=== PATIENT | female | born 1990 | race Caucasian/White ===

== ENCOUNTER → 2016-09-09 | Outpatient (CLI) | payer OTHER ==
[~2016-09-09] MED LIST: PRENTAB26 PO
[2016-09-09 16:50] LABS: HEMATOCRIT 32.1 % (37-47)
[2016-09-09 17:24] LABS: GTGD 50 Grams
== END | disposition home or self-care (01) ==
LOC: C.LAB1850 14:54
PROVIDERS: ATTEND Obstetrics & Gynecology
DX: Z34.82 Encounter for supervision of other normal pregnancy, second trimester (principal)

== ENCOUNTER 2016-10-12 20:58 | Outpatient (CLI) | payer OTHER ==
[~2016-10-12] VITALS: Ht 162.6 cm; Wt 104.0 kg
[2016-10-12 21:53] VITALS: Ht 162.6 cm; Wt 104.0 kg
== END 2016-10-12 21:45 | disposition home or self-care (01) ==
LOC: C.OPB 20:58 → C.LD 21:00 → C.OPB 21:45
PROVIDERS: ATTEND Obstetrics & Gynecology
DX: O26.899 Other specified pregnancy related conditions, unspecified trimester (principal); R10.9 Unspecified abdominal pain; Z3A.00 Weeks of gestation of pregnancy not specified

== ENCOUNTER → 2016-10-21 | Outpatient (CLI) | payer OTHER | END | disposition home or self-care (01) | LOC: C.LABSPEC 13:20 | PROVIDERS: ATTEND Obstetrics & Gynecology | DX: Z34.83 Encounter for supervision of other normal pregnancy, third trimester (principal) ==

== ENCOUNTER 2016-11-11 17:49 | Inpatient (IN) | payer OTHER ==
[~2016-11-11] VITALS: Ht 162.6 cm; Wt 103.4 kg
[2016-11-11] MEDS ORDERED: LACTATED RINGER'S 1000ML 1,000 ML IV PRN (18:55)
[2016-11-11] MEDS ORDERED: PATIENT'S ALLERGY INFO NEEDS ENTERED SCH (19:00)
[2016-11-11] MEDS: LACTATED RINGER'S 1000ML 1,000 ML IV SCH ×2 (19:08→20:15)
[2016-11-11] MEDS ORDERED: PRENTAB26 PO (19:12)
[2016-11-11 19:14] VITALS: Ht 162.6 cm; Wt 103.4 kg
[2016-11-11] MEDS ORDERED: BUPIVACAINE 0.25% 30 ML VIAL ONE (19:17)
[2016-11-11] MEDS ORDERED: EpHEDrine SULFATE INJ 50 MG/ML AMP ONE (19:18)
[2016-11-11] MEDS ORDERED: FENTANYL CITRATE INJ 50 MCG/1 ML 2 ML VIAL ONE (19:18)
[2016-11-11] MEDS ORDERED: FENTANYL 2MCG/ML ROPIV 1.25MG/ML 100ML BAG EPI ONE (19:19)
[2016-11-11 19:24] LABS: HEMATOCRIT 35.7 % (37-47); MEAN CELL VOLUME 81.7 fL (80-100); MEAN CORPUSCULAR HEMOGLOBIN 27.7 pg (25-34); MEAN CORPUSCULAR HGB CONC 33.9 g/dl (32-36); MEAN PLATELET VOLUME 9.4 fL (7.4-10.4); PLATELET COUNT 297 K/uL (130-400); RED BLOOD COUNT 4.37 M/uL (4.2-5.4); WHITE BLOOD COUNT 14.73 K/uL (4.8-10.8)
[2016-11-11] MEDS ORDERED: LACTATED RINGER'S 1000ML 500 ML IV PRN (19:52)
[2016-11-11] MEDS ORDERED: NALBUPHINE HCL INJ 10 MG/ML AMP IV PRN (20:00)
[2016-11-11] MEDS ORDERED: DiphenhydrAMINE HCL 50 MG/ML VIAL IV PRN (20:00)
[2016-11-11] MEDS ORDERED: NALOXONE HCL INJ 0.4 MG/1 ML VIAL/CARP IV PRN (20:00)
[2016-11-11] MEDS ORDERED: EpHEDrine SULFATE INJ 50 MG/ML AMP IV PRN (20:00)
[2016-11-11] MEDS ORDERED: FENTANYL 2MCG/ML ROPIV 1.25MG/ML 100ML BAG EPI PRN (20:00)
[2016-11-11] MEDS ORDERED: ONDANSETRON INJ 2 MG/ML 2 ML VIAL IV PRN (20:00)
[2016-11-11] MEDS ORDERED: OXYTOCIN 30 UNITS/500ML NSS IV ONE (22:06)
[2016-11-11] MEDS ORDERED: OXYTOCIN 30 UNITS/500ML NSS IV PRN (22:30)
[2016-11-11] MEDS ORDERED: ACETAMINOPHEN/CODEINE 300/30MG TAB PO PRN (22:30)
[2016-11-11] MEDS ORDERED: SUPERCREAM 0.870 % 15GM JAR EXT PRN (22:30)
[2016-11-11] MEDS ORDERED: LANOLIN OINT EXT PRN ×2 (22:30)
[2016-11-11] MEDS ORDERED: HYDROCORTISONE ACETATE 25 MG SUPP PR PRN (22:30)
[2016-11-11] MEDS ORDERED: BENZOCAINE 20% AER SPR 82.5 GM CAN EXT PRN (22:30)
--- NOTE | 2016-11-11 23:04 | DELIVERY SUMMARY ---
DATE OF OPERATION: 11/11/2016 PREDELIVERY DIAGNOSES: 1. A 26-year-old G6, P3-1-1-4 at 39 weeks 2 days. 2. Spontaneous labor. 3. Late transfer of care. 4. History of delivery at 34 weeks. History of a fall with that delivery and went into labor. PROCEDURE: Spontaneous vaginal delivery. ESTIMATED BLOOD LOSS: 200 mL. FINDINGS: Viable female . Apgars 8 and 9. Weight pending. Please see nursing records. DESCRIPTION OF DELIVERY: The patient progressed to complete with epidural anesthesia. She then pushed once and baby spontaneously vaginally delivered from left occiput anterior position. Head delivered followed by shoulders and body, all in one motion. The baby was warmed and dried and a spontaneous cry was heard. The baby was placed on mother's abdomen. Delayed cord clamping was performed, after 1 minute the cord was clamped and cut. Cord blood was obtained. The placenta delivered spontaneously intact with a 3-vessel cord. The uterus and vagina were swept of all clots and debris. Pitocin was given. The uterus became firm. The cervix, vagina and perineum were inspected and no lacerations were noted. Excellent hemostasis was observed. The patient tolerated the delivery well and in stable and good condition. She and the baby will recover in the room. I attest to the content of the Intraoperative Record and any orders documented therein. Any exceptio ns are noted below.
[2016-11-12 01:30] VITALS: BP 121/70; PULSE 84; TEMP 36.9
[2016-11-12 03:25] VITALS: BP 112/70; PULSE 80; TEMP 36.9
[2016-11-12] MEDS: IBUPROFEN 600 MG TAB PO PRN ×5 (03:34→21:18)
--- NOTE | 2016-11-12 06:43 | Progress Note ---
Subjective Nov 12, 2016. Subjective conversation w/ patient, physical exam Ambulation: ambulating normally Voiding: no voiding problems Passing Gas: No Diet Tolerance: Regular Diet Lochia: Small Feeding Type: Breast Feeding Review of Systems Constitutional: No chills, No fever Respiratory: No cough, No shortness of breath Cardiac: No chest pain, No palpitations Objective Vital Signs Date Time Temp Pulse Resp B/P Pulse Ox O2 Delivery O2 Flow Rate FiO2 11/12/16 03:25 36.9 80 18 112/70 Room Air 11/12/16 01:30 Room Air 11/12/16 01:30 36.9 84 16 121/70 Room Air Physical Exam General Appearance: WELL-APPEARING, NO APPARENT DISTRESS Respiratory/Chest: lungs clear, no respiratory distress Cardiovascular: regular rate, rhythm, no murmur Fundus: Firm, Non-Tender, Relation to Umbilicus (1 cm below umbilicus) Extremities: non-tender, no calf tenderness Laboratory Results Last 24 Hours Test 11/11/16 19:15 11/12/16 04:44 White Blood Count 14.73 K/uL Red Blood Count 4.37 M/uL Hemoglobin 12.1 g/dL Hematocrit 35.7 % Mean Corpuscular Volume 81.7 fL Mean Corpuscular Hemoglobin 27.7 pg Mean Corpuscular Hemoglobin Concent 33.9 g/dl RDW Standard Deviation 39.4 fL RDW Coefficient of Variation 13.1 % Platelet Count 297 K/uL Mean Platelet Volume 9.4 fL Assessment and Plan Post- Day#: 1 Continue Routine Care: s/p Day 1 - vitals reviewed and wnl - Hgb reviewed 12.1 - Blood: O+, GBS-, Rubella immune - Encourage ambulation, encourage , monitor lochia - Patient doing well clinically - CONTINUE ROUTINE POST- CARE Resident Physician Supervision Note: I interviewed and examined the patient. Discussed with Dr. Nugent and agree with findings and plan as documented in the note. Any exceptions or clarifications are listed here: PPD#1 doing well, continue routine care. Documented By: Leatha Pierre
[2016-11-12 07:32] VITALS: BP 105/71; PULSE 69; TEMP 36.9; O2SAT 98
[2016-11-12 07:46] LABS: HEMATOCRIT 30.5 % (37-47)
[2016-11-12] MEDS: DOCUSATE SODIUM 100 MG CAP PO SCH ×2 (08:20→19:33)
--- NOTE | 2016-11-12 08:41 | Anesthesia Procedure Note ---
Anesthesia Epidural Removal Nt Date & Time Nov 12, 2016 at 08:41 Vital Signs Pain Intensity: 1 Vital Signs Past 12 Hours Date Time Temp Pulse Resp B/P Pulse Ox O2 Delivery O2 Flow Rate FiO2 11/12/16 07:32 36.9 69 20 105/71 98 Room Air 11/12/16 03:25 36.9 80 18 112/70 Room Air 11/12/16 01:30 Room Air 11/12/16 01:30 36.9 84 16 121/70 Room Air Notes Mental Status: alert / awake / arousable, participated in evaluation Nausea / Vomiting: adequately controlled Pain: adequately controlled Airway Patency, RR, SpO2: stable & adequate BP & HR: stable & adequate Hydration State: stable & adequate Neuraxial Anesthesia: was administered Anesthetic Complications: no major complications apparent, pt satisfied with anesthetic care Epidural: removed without complications, with tip intact
[2016-11-12] MEDS: ACETAMINOPHEN/CODEINE 300/30MG TAB PO PRN ×4 (10:15→22:13)
[2016-11-12 12:10] VITALS: BP 118/74; PULSE 67; TEMP 36.4; O2SAT 97
[2016-11-12 15:45] VITALS: BP 110/65; PULSE 70; TEMP 36.4; O2SAT 99
[2016-11-12 19:30] VITALS: BP 121/74; PULSE 76; TEMP 36.5
--- NOTE | 2016-11-12 21:11 | Discharge Instructions ---
Discharge Instructions Date of Service Nov 12, 2016. Admission Reason for Admission: Check Labor Discharge Discharge Diagnosis / Problem: Spontaneous Vaginal Delivery Discharge Goals Goal(s): Routine recovery after delivery Medications Continue Dispensed Medications: supercream, dermaplast, tucks, lansinoh Activity Recommendations Activity Limitations: per Instructions/Follow-up section . Instructions / Follow-Up Instructions / Follow-Up ACTIVITY RECOMMENDATIONS: * Gradual return to full activity over the next 2-3 weeks. * No lifting - nothing heavier than baby over the next 2-3 weeks. * Do not engage in vigorous exercise, sexual activity or sports until cleared by your physician. * Do not drive or operate any motorized equipment until cleared by your physician. * You may shower/bathe daily. MEDICATIONS: For discomfort or pain, you may use Acetaminophen (Tylenol), Ibuprofen (Advil), or Naproxen (Aleve) following the package directions. For constipation you may use Colace following the package directions. BREAST CARE: If you are not breast feeding: * Wear a supportive bra 24 hours a day for one to two weeks. * Avoid stimulating your breasts and nipples as much as possible during the first few weeks after delivery. * When taking a shower, have the warm water hit your back, not breasts. * When your breasts feel full, apply ice packs. Usually three to four times a day helps ease the discomfort. * Take a mild pain medication (Tylenol / Motrin) when you are uncomfortable. If breast feeding: * Use breast milk to lubricate nipples. Lansinoh cream may be used for sore nipples. You do not need to remove cream prior to breast feeding. If using a different brand of cream, check the label for directions regarding removal of cream prior to nursing. * Wear a supportive bra. * If having problems with breasts or breast feeding, call a systems security consultant or your health care provider. EPISIOTOMY CARE: After delivery, if you have an episiotomy (stitches), the following steps will ease discomfort and aid healing. * For the first 24 hours after delivery, place ice packs next to your episiotomy to help reduce swelling. * After the first 24 hour-period, sitz baths, either portable or in the tub, are suggested. A shower with a shower arm sprayed over the episiotomy may be comforting. * Tashia care should be done after each voiding and bowel movement. Squirt warm water from a plastic bottle over the perineum (region of the body between the anus and urinary opening) and pat dry. * Use Dermoplast to ease discomfort. Shake container. [place] directly over the episiotomy. Place a Tucks on a clean sanitary pad next to your episiotomy. SPECIAL CARE INSTRUCTIONS: When you are discharged from the hospital, it is important for you to follow the instructions listed below: * During the first week at home, you should be able to care for yourself and your baby. In addition, the usual light household activities are encouraged. * Limit your activities to the way you feel. Do not try to clean the house or move furniture. Be sensible. * If you actively engage in sports and have done so up until the time of your delivery, you may resume these activities as soon as you feel able. This may take up to one month or even longer. Use good judgment. * Continue to take your vitamins for at least six weeks after the of your baby. * Your diet need not be limited unless you were on a special diet before your delivery. Breast-feeding mothers need around 2500 calories per day and at least 64-80 ounces of fluid per day (8 to 10 glasses). * You should eat foods from the four major food groups. Crash diets or fad diets are to be avoided. Eating lean meats, fresh fruits and vegetables, low-fat dairy products, high fiber foods and a regular exercise program, will help you get back to your pre- weight without putting your health at risk. * Constipation is sometimes a problem after delivery. Take a mild laxative as needed. If breast feeding, Milk of Magnesia is acceptable to use. You may use a suppository or Fleets enema if no episiotomy. * A daily shower or tub bath is suggested. Be sure to thoroughly and gently dry the perineum. * A bloody vaginal discharge will usually continue until around four weeks post . A small amount of bleeding may continue for as long as six weeks. Vaginal discharge changes from the bright red bleeding after delivery to pink then brownish and finally yellowish-pink before becoming white and disappearing. * Bleeding may increase with activity. Your first period may come in 4-8 weeks. If you are breast feeding, your period may be delayed even longer. * Satartia (sex) can begin whenever both you and your partner feel comfortable and do not have any form of genital infection. It is recommended that you wait at least six weeks for internal and external healing to occur. If you have questions, please talk to your health care practitioner. A condom should be used to prevent infection and . * Foreplay, gentle intercourse and lubrication is very important the first several times to prevent pain. A water-based lubricant such as K-Y jelly or Astroglide may be used. * If you have RH negative blood and your baby is RH positive, you will receive RHOGAM by injection prior to discharge. The nurse will give you a card to keep with you that has the date and place that you received RHOGAM after delivery. * During your care, you had a Rubella screen done to check for the presence of rubella antibodies in your blood. If your test was negative, you will receive a Rubella vaccine prior to discharge. This vaccine may cause a fever, soreness at the injection site and flu-like symptoms. If these symptoms persist, notify your health care practitioner. is not advised for one month after a Rubella vaccine. * Verbalizes understanding of car seat law as reviewed with patient nursing. * Car Seat hand-out given and reviewed with patient by nursing. * Shaken baby information reviewed with patient by nursing. Call you doctor if: * Heavy bleeding (saturating several pads an hour) or passing clots the size of your fist. * A fever >101 degrees F (38.3 degrees C) on two occasions four hours apart and /or chills. * Unusual pain in the pelvic or vaginal areas. * "Baby Blues" lasting longer than two weeks. If you have any questions or concerns, call your health care practitioner at . FOLLOW UP VISIT: * Please call the office at to schedule a 6 week examination. It is important you keep this appointment. It is important for you to make arrangements for either yearly or twice yearly check-ups thereafter. Current Hospital Diet Patient's current hospital diet: Regular OB Diet Discharge Diet Recommended Diet: Regular Diet Pending Studies Studies pending at discharge: no Medical Emergencies . Who to Call and When: Medical Emergencies: If at any time you feel your situation is an emergency, please call 911 immediately. . Non-Emergent Contact Non-Emergency issues call your: Primary Care Provider, Rn Interventional . . "Provider Documentation" section prepared by Fercho Nugent. VTE Core Measure Inpt VTE Proph given/why not?: Treatment not indicated
[2016-11-13 01:00] VITALS: BP 122/73; TEMP 36.2
[2016-11-13] MEDS: IBUPROFEN 600 MG TAB PO PRN (05:46)
[2016-11-13] MEDS: ACETAMINOPHEN/CODEINE 300/30MG TAB PO PRN (05:46)
--- NOTE | 2016-11-13 06:47 | Progress Note ---
Subjective Nov 13, 2016. Subjective conversation w/ patient, physical exam Ambulation: ambulating normally Voiding: no voiding problems Passing Gas: Yes Diet Tolerance: Regular Diet Lochia: Small Feeding Type: Breast Feeding Review of Systems Constitutional: No chills, No fever Respiratory: No cough, No shortness of breath Cardiac: No chest pain, No claudication Objective Vital Signs Date Time Temp Pulse Resp B/P Pulse Ox O2 Delivery O2 Flow Rate FiO2 11/13/16 01:00 36.2 20 122/73 Room Air 11/13/16 01:00 Room Air 11/12/16 19:30 36.5 76 20 121/74 Room Air 11/12/16 15:45 99 Room Air 11/12/16 15:45 36.4 70 16 110/65 99 Room Air 11/12/16 12:10 36.4 67 18 118/74 97 Room Air 11/12/16 08:10 Room Air 11/12/16 07:32 36.9 69 20 105/71 98 Room Air Physical Exam General Appearance: WELL-APPEARING, NO APPARENT DISTRESS Respiratory/Chest: lungs clear, no accessory muscle use Cardiovascular: regular rate, rhythm, no murmur Abdomen: non tender, soft Fundus: Firm, Non-Tender, Relation to Umbilicus (1 cm below) Extremities: non-tender, no calf tenderness Laboratory Results Last 24 Hours Test 11/12/16 07:21 Hemoglobin 10.5 g/dL Hematocrit 30.5 % Assessment and Plan Post- Day#: 2 Continue Routine Care: s/p Day 2 - vitals reviewed and wnl - Hgb reviewed 10.5 yesterday - Blood: O+, GBS-, Rubella immune - Encourage ambulation, encourage , monitor lochia - Patient doing well clinically - Patient counselled on discharge instructions - PATIENT TO BE DISCHARGED TODAY Resident Physician Supervision Note: I was present with Dr. Nugent during the history and exam. I discussed the case with the resident and agree with the findings and plan as documented in the note. Any exceptions or clarifications are listed here: Doing well. ready for discharge. breast feeding. 6wk pp check and instructions reviewed. Documented By: Karina Brewer
[2016-11-13] MEDS ORDERED: BISACODYL 10 MG SUPP PR PRN (07:00)
[2016-11-13] MEDS: DOCUSATE SODIUM 100 MG CAP PO SCH (08:16)
[2016-11-13 12:10] VITALS: BP_DIAS 73; PULSE 76; TEMP 36.2
== END 2016-11-13 12:35 | disposition home or self-care (01) | DRG 775 ==
LOC: C.OPB 17:49 → C.LD 17:49 → C.OPB 18:56 → C.OBG 11-12 00:35
PROVIDERS: ADMIT Obstetrics & Gynecology; ATTEND Obstetrics & Gynecology
PROC: 10E0XZZ Delivery of Products of Conception, External Approach (ICD-10-PCS; principal; 2016-11-11)
DX: O80 Encounter for full-term uncomplicated delivery (principal); Z37.0 Single live birth; Z87.51 Personal history of pre-term labor; Z3A.39 39 weeks gestation of pregnancy

== ENCOUNTER → 2017-02-28 | Outpatient (CLI) | payer OTHER ==
[2017-02-28 12:13] LABS: PREG INTERNAL NEGATIVE QC NEG CLEAR BACKGROUND; PREG INTERNAL POSITIVE QC POS CONTROL LINE
== END | disposition home or self-care (01) ==
LOC: C.LAB1850 10:27
PROVIDERS: ATTEND Obstetrics & Gynecology
DX: Z34.83 Encounter for supervision of other normal pregnancy, third trimester (principal)